=== PATIENT | female | born 1965 | race Two or more races ===

== ENCOUNTER 2021-05-28 15:29 | Emergency (ER) | payer OTHER ==
[~2021-05-28] VITALS: Ht 152.4 cm; Wt 50.8 kg
[2021-05-28] MEDS ORDERED: ZESTRIL5 MG (16:34)
== END 2021-05-28 19:59 | disposition home or self-care (01) ==
LOC: ER 15:29
DX: M54.50 Low back pain, unspecified (principal); M79.7 Fibromyalgia